=== PATIENT | male | born 1975 | race Caucasian/White ===

== ENCOUNTER 2018-09-21 12:38 | Emergency (ER) | payer OTHER ==
[~2018-09-21] VITALS: Ht 185.4 cm; Wt 79.4 kg
[2018-09-21 12:50] VITALS: BP 133/95
[2018-09-21] MEDS ORDERED: IBUPROFEN 400 MG TABLET ONE (13:09)
[2018-09-21] MEDS ORDERED: ONDANSETRON 4 MG TAB.RAPDIS ONE (13:09)
[2018-09-21] MEDS ORDERED: ONDANSETRON 4 MG TAB.RAPDIS SL ONE (13:30)
[2018-09-21] MEDS ORDERED: IBUPROFEN 400 MG TABLET PO ONE (13:30)
--- NOTE | 2018-09-21 13:43 | NUR ---
Patient discharged in custody in stable condition. Written and verbal after care instructions given. Patient verbalizes understanding of instruction.
== END 2018-09-21 13:45 ==
LOC: ER 12:44
DX: F11.23 Opioid dependence with withdrawal (principal); R56.9 Unspecified convulsions; Z02.89 Encounter for other administrative examinations
CPT/HCPCS: 99283; Q0162